=== PATIENT | male | born 1965 ===

== ENCOUNTER 2017-02-27 13:37 | Emergency (ER) | payer BC ==
[2017-02-27 13:55] VITALS: BP 149/78
--- NOTE | 2017-02-27 14:25 | UC ---
Back Pain HPI - HPI Summary HPI Summary: Patient has had ongoing back pain, over the last month, he has been doing alot of lifting, caring for his father, now has radiating pain down the left leg, pain is relieved with sitting. - History of Current Complaint Chief Complaint: UCBackPain Stated Complaint: BACK PAIN Time Seen by Provider: 02/27/17 13:48 Hx Obtained From: Patient Onset/Duration: Gradual Onset, Lasting Weeks Timing: Lasting Weeks Severity Initially: Mild Severity Currently: Severe Back Pain: Is Diffuse - left side of back Character: Dull, Aching, Spasmodic Aggravating: Movement Alleviating: Position Associated Signs And Symptoms: Positive: Tingling, Pain with Weight Bearing - Allergies/Home Medications Allergies/Adverse Reactions: Allergies Allergy/AdvReac Type Severity Reaction Status Date / Time Amoxicillin Allergy Rash Verified 02/27/17 13:45 Home Medications: Home Medications NK [No Home Medications Reported] 02/27/17 [History Confirmed 02/27/17] PMH/Surg Hx/FS Hx/Imm Hx Previously Healthy: Yes - Surgical History Surgical History: None - Family History Known Family History: Positive: Other - ALS - father Negative: Cardiac Disease, Hypertension - Social History Alcohol Use: Rare Substance Use Type: None Smoking Status (MU): Never Smoked Tobacco - Immunization History Most Recent Influenza Vaccination: 2016 Most Recent Tetanus Shot: UTD Review of Systems Constitutional: Negative Skin: Negative Eyes: Negative ENT: Negative Respiratory: Negative Cardiovascular: Negative Gastrointestinal: Negative Genitourinary: Negative Motor: Negative Neurovascular: Negative, Other - radiating pain down left leg Musculoskeletal: Arthralgia, Decreased ROM, Myalgia Neurological: Negative Psychological: Negative All Other Systems Reviewed And Are Negative: Yes Physical Exam Triage Information Reviewed: Yes Appearance: Well-Appearing, Well-Nourished, Pain Distress Vital Signs: Initial Vital Signs Temp 98.2 F 02/27/17 13:46 Pulse 68 02/27/17 13:46 Resp 16 02/27/17 13:46 BP 149/78 02/27/17 13:46 Pulse Ox 98 02/27/17 13:46 Vital Signs Reviewed: Yes Eye Exam: Normal Eyes: Positive: Conjunctiva Clear ENT Exam: Normal ENT: Positive: Hearing grossly normal, Pharynx normal, TMs normal Dental Exam: Normal Neck exam: Normal Neck: Positive: Supple, Nontender, No Lymphadenopathy Respiratory Exam: Normal Respiratory: Positive: Chest non-tender, Lungs clear, Normal breath sounds Cardiovascular Exam: Normal Cardiovascular: Positive: RRR, No Murmur, Pulses Normal Abdominal Exam: Normal Abdomen Description: Positive: Nontender, No Organomegaly, Soft Bowel Sounds: Positive: Present Musculoskeletal: Positive: No Edema, Strength Limited @ - cant stand on left foot alone, ROM Limited @ - in flexion of lumbar spine, Other: - right SI, 1 inch higher than right Neurological Exam: Normal Psychological Exam: Normal Skin Exam: Normal Back Pain Course/Dx - Course Course Of Treatment: hx obtained, exam performed ,meds reviewed, xray obtained, see report, I STOP consulted - Differential Dx/Diagnosis Differential Diagnosis/HQI/PQRI: Arthritis, Herniated Disc, Strain, Sprain Provider Diagnoses: DJD, SPONDYLOLYSIS Discharge - Discharge Plan Condition: Stable Disposition: HOME Patient Education Materials: Degenerative Disc Disease (ED), Spondylolisthesis (ED) Additional Instructions: 1. I have given an anti inflammatory to take daily, do not take anymore NSAIDs in conjunction with it. 2. I recommend, massage and clinical care leader for balancing the musculature of the pelvis and low back. decreaseing the spasm with help with the radiating pain. 3. Make sure to use proper body mechanics with lifting.
--- NOTE | 2017-02-27 14:37 | RAD ---
HISTORY: Pain radiates left leg COMPARISONS: None VIEWS: 5 , Frontal, lateral, coned-down lateral sacral, and bilateral oblique views of the lumbar spine. FINDINGS: ALIGNMENT: There is grade 1 anterolisthesis of L5 on S1. VERTEBRAL BODIES: There is multilevel anterolateral marginal osteophyte formation. There are bilateral pars defects at L5. JOINTS: There is facet osteoarthritic change most pronounced at L4-L5 and L5-S1 INTERVERTEBRAL DISCS: There is diffuse loss of intervertebral disc height. SOFT TISSUE: Unremarkable. OTHER: There is osteoarthritis of the hips and SI joints. The lung bases are clear. IMPRESSION: 1. SPONDYLOLYSIS WITH SPONDYLOLISTHESIS AT L5-S1. 2. DEGENERATIVE DISC DISEASE AND OSTEOARTHRITIS
== END 2017-02-27 15:00 | disposition home or self-care (01) ==
LOC: UCCORT 13:37
DX: M51.37 Other intervertebral disc degeneration, lumbosacral region (principal); M47.817 Spondylosis without myelopathy or radiculopathy, lumbosacral region; Z88.1 Allergy status to other antibiotic agents
CPT/HCPCS: 72110; 99212; G0463